=== PATIENT | male | born 1990 | race Caucasian/White ===

== ENCOUNTER 2025-08-24 07:26 | Emergency (ER) | payer OTHER ==
[~2025-08-24] VITALS: Ht 177.8 cm; Wt 74.8 kg
[~2025-08-24 07:26] MED LIST: IBUP-1955 PO
[2025-08-24 07:43] VITALS: BP 117/60; TEMP 98.2; O2SAT 97
[2025-08-24] MEDS ORDERED: AMOX-430 PO (08:16)
== END 2025-08-24 08:30 | disposition home or self-care (01) ==
LOC: ER 07:29
DX: J02.9 Acute pharyngitis, unspecified (principal); H92.01 Otalgia, right ear
CPT/HCPCS: 86403-TC; 87070-TC